=== PATIENT | female | born 1990 | race Two or more races ===

== ENCOUNTER 2017-05-18 13:09 | Emergency (ER) | payer OTHER ==
[~2017-05-18] VITALS: Ht 162.6 cm; Wt 54.4 kg
[2017-05-18] MEDS ORDERED: IBUPROFEN800 MG PO (15:10)
== END 2017-05-18 15:27 | disposition home or self-care (01) ==
LOC: ER 13:09
DX: N94.6 Dysmenorrhea, unspecified (principal)

== ENCOUNTER 2020-08-06 07:31 | Outpatient (CLI) | payer OTHER ==
[~2020-08-06 07:31] MED LIST: IBUPROFEN800 MG PO
== END 2020-08-06 08:20 | disposition home or self-care (01) ==
LOC: NST 07:31
PROVIDERS: ATTEND Obstetrics & Gynecology
DX: Z34.03 Encounter for supervision of normal first pregnancy, third trimester (principal)

== ENCOUNTER 2020-09-25 12:45 | Inpatient (IN) | payer OTHER ==
[~2020-09-25] VITALS: Ht 162.6 cm; Wt 68.0 kg
[2020-10-06] MEDS ORDERED: PEPCID AC20 MG (04:48)
[2020-10-06] MEDS ORDERED: PRENATAL CAPLE1 EAC1 (04:49)
== END 2020-10-08 14:32 | disposition home or self-care (01) | DRG 768 ==
LOC: LDR 10-06 09:51 → SURG-SUITE 10-06 09:51 → LDR 10-21 12:45
PROVIDERS: ADMIT Obstetrics & Gynecology; ATTEND Obstetrics & Gynecology
PROC: 10E0XZZ Delivery of Products of Conception, External Approach (ICD-10-PCS; principal; 2020-10-06)
PROC: 0DQR0ZZ Repair Anal Sphincter, Open Approach (ICD-10-PCS; 2020-10-06)
PROC: 0W8NXZZ Division of Female Perineum, External Approach (ICD-10-PCS; 2020-10-06)
PROC: 10907ZC Drainage of Amniotic Fluid, Therapeutic from Products of Conception, Via Natural or Artificial Opening (ICD-10-PCS; 2020-10-06)
PROC: 3E033VJ Introduction of Other Hormone into Peripheral Vein, Percutaneous Approach (ICD-10-PCS; 2020-10-06)
PROC: 4A1HXFZ Monitoring of Products of Conception, Cardiac Rhythm, External Approach (ICD-10-PCS; 2020-10-06)
DX: O70.20 Third degree perineal laceration during delivery, unspecified (principal); Z37.0 Single live birth; Z3A.37 37 weeks gestation of pregnancy; Z20.822 Contact with and (suspected) exposure to COVID-19

== ENCOUNTER → 2020-10-06 | Outpatient (CLI) | payer OTHER ==
[~2020-10-06] MED LIST changes: +PEPCID AC20 MG; +PRENATAL CAPLE1 EAC1
== END | disposition still patient (30) ==
LOC: OBS/DEL 04:33
PROVIDERS: ATTEND Obstetrics & Gynecology
DX: O47.1 False labor at or after 37 completed weeks of gestation (principal); Z3A.39 39 weeks gestation of pregnancy

== ENCOUNTER 2022-08-17 10:06 | Emergency (ER) | payer OTHER ==
[~2022-08-17] VITALS: Ht 162.6 cm; Wt 53.1 kg
[2022-08-17] MEDS ORDERED: PANTOPRAZOLE SO20 MG PO (10:14)
[2022-08-17] MEDS ORDERED: SWIM EAR DRO29.57 ML OT (12:05)
== END 2022-08-17 12:28 | disposition home or self-care (01) ==
LOC: ER 10:06
DX: J02.9 Acute pharyngitis, unspecified (principal); R53.81 Other malaise; H66.92 Otitis media, unspecified, left ear